=== PATIENT | female | born 1990 | race African-American/Black ===

== ENCOUNTER 2017-05-14 16:56 | Emergency (ER) | payer MEDICAID, OTHER ==
[~2017-05-14] VITALS: Ht 162.6 cm; Wt 58.0 kg
[2017-05-14 16:57] VITALS: BP 141/91; PULSE 81; RESP 16; TEMP 99; O2SAT 99
--- NOTE | 2017-05-14 17:33 | PD ---
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 Patient states that she has intermittent low abdominal pain and pelvic pain for the past 2 years. Patient denies any abdominal pain pelvic pain today. Patient states that the pains occasionally associated with eating . Patient states that she started having vaginal bleeding the week ago. Patient states that she has history of irregular menstruation period for the past several years. Patient states that she has 3 or 4 menses a year. Patient has not seen any seafood service team member for this. Patient states that she was seen at [facility] yesterday and had pelvic ultrasound done which show ovarian cyst. Patient was discharged. Patient states that she does not have any seafood service team member locally for follow-up. Patient denies any headache. Patient denies any chest pain or shortness of breath. Patient denies any dysuria or frequency. Patient denies any fever chills. Patient denies any back pain. PFSH Past Medical History Diminished Hearing: No ?: Not LMP: UNKNOWN : 2 Para: 1 Miscarriage: 1 Past Surgical History Section: Yes Gynecologic Surgery: Yes Valve Replacement: No Social History Alcohol Use: No Tobacco Use: No Substance Use: No Allergies-Medications (Allergen,Severity, Reaction): Coded Allergies: No Known Allergies (Verified , 04/01/15) Reported Meds & Prescriptions Reported Meds & Active Scripts Active No Active Prescriptions or Reported Medications Review of Systems General / Constitutional: No: Fever Eyes: No: Visual changes HENT: No: Headaches Cardiovascular: No: Chest Pain or Discomfort Respiratory: No: Shortness of Breath Gastrointestinal: Positive: Abdominal Pain Genitourinary: Positive: Pelvic Pain, Vaginal Bleeding, No: Dysuria Musculoskeletal: No: Pain Skin: No Rash Neurologic: No: Weakness Psychiatric: No: Depression Endocrine: No: Polydipsia Hematologic/Lymphatic: No: Easy Bruising Physical Exam Narrative GENERAL: Well-nourished, well-developed patient. SKIN: Focused skin assessment warm/dry. HEAD: Normocephalic. EYES: No scleral icterus. No injection or drainage. NECK: Supple, trachea midline. No JVD or lymphadenopathy. CARDIOVASCULAR: Regular rate and rhythm without murmurs, gallops, or rubs. RESPIRATORY: Breath sounds equal bilaterally. No accessory muscle use. GASTROINTESTINAL: Abdomen soft, non-tender, nondistended. MUSCULOSKELETAL: No cyanosis, or edema. BACK: Nontender without obvious deformity. No CVA tenderness. NEGATIVE ASSEMBLER exam: Done by my insurance account assistant. Patient has cervical motion tenderness. Mild tenderness on palpation of uterus. No adnexal masses or tenderness . Data Data Last Documented VS Vital Signs Date Time Temp Pulse Resp B/P Pulse Ox O2 Delivery O2 Flow Rate FiO2 05/14/17 16:57 99.0 81 16 141/91 99 Orders Beta Hcg (Quant/Titer) (05/14/17 17:18) Complete Blood Count With Diff (05/14/17 17:18) Comprehensive Metabolic Panel (05/14/17 17:18) Wet Prep Profile (05/14/17 17:18) Urinalysis - C+S If Indicated (05/14/17 17:18) Iv Access Insert/Monitor (05/14/17 17:18) Us Pelvis Comp W Doppler (05/14/17 17:18) Gc And Chlamydia Pcr (05/14/17 18:03) Labs Laboratory Tests Test 05/14/17 05/14/17 05/14/17 17:30 17:40 18:15 Urine Color YELLOW Urine Turbidity CLEAR Urine pH 6.0 Urine Specific [place] 1.033 Urine Protein TRACE mg/dL Urine Glucose (UA) NEG mg/dL Urine Ketones NEG mg/dL Urine Occult Blood NEG Urine Nitrite NEG Urine Bilirubin NEG Urine Urobilinogen LESS THAN 2.0 MG/DL Urine Leukocyte Esterase NEG Urine WBC 1 /hpf Urine Squamous Epithelial 1 /hpf Cells Urine Mucus FEW /lpf Microscopic Urinalysis Comment CULT NOT INDICATED Clue Cells (Wet Prep) NONE SEEN Vaginal Trichomonas (Wet Prep) NONE SEEN Vaginal Yeast (Wet Prep) NONE SEEN White Blood Count 4.4 TH/MM3 Red Blood Count 4.48 MIL/MM3 Hemoglobin 13.9 GM/DL Hematocrit 41.4 % Mean Corpuscular Volume 92.3 FL Mean Corpuscular Hemoglobin 31.1 PG Mean Corpuscular Hemoglobin 33.7 % Concent Red Cell Distribution Width 13.0 % Platelet Count 250 TH/MM3 Mean Platelet Volume 6.8 FL Neutrophils (%) (Auto) 48.9 % Lymphocytes (%) (Auto) 41.4 % Monocytes (%) (Auto) 7.2 % Eosinophils (%) (Auto) 1.7 % Basophils (%) (Auto) 0.8 % Neutrophils # (Auto) 2.2 TH/MM3 Lymphocytes # (Auto) 1.8 TH/MM3 Monocytes # (Auto) 0.3 TH/MM3 Eosinophils # (Auto) 0.1 TH/MM3 Basophils # (Auto) 0.0 TH/MM3 CBC Comment DIFF FINAL Differential Comment Sodium Level 139 MEQ/L Potassium Level 4.0 MEQ/L Chloride Level 104 MEQ/L Carbon Dioxide Level 28.9 MEQ/L Anion Gap 6 MEQ/L Blood Urea Nitrogen 11 MG/DL Creatinine 0.84 MG/DL Estimat Glomerular Filtration 98 ML/MIN Rate Random Glucose 72 MG/DL Calcium Level 8.8 MG/DL Total Bilirubin 0.3 MG/DL Aspartate Amino Transf 13 U/L (AST/SGOT) Alanine Aminotransferase 18 U/L (ALT/SGPT) Alkaline Phosphatase 79 U/L Total Protein 7.9 GM/DL Albumin 4.1 GM/DL Human Chorionic Gonadotropin, LESS THAN 1 Quant MIU/ML MDM Medical Decision Making Medical Screen Exam Complete: Yes Emergency Medical Condition: Yes Interpretation(s) Last Impressions Pelvis Ultrasound 05/14/17 0268 Signed Impressions: Service Date/Time: Sunday, May 14, 2017 17:53 - CONCLUSION: Negative pelvic ultrasound. Ten Flores MD 1859 PM. CBC within normal limit. CMP within normal limit. UA is negative. Wet prep negative. Beta HCG negative. Differential Diagnosis Differential diagnosis including dysmenorrhea, cervicitis, PID, threatened AB, ectopic , ovarian cyst, ovarian torsion. Narrative Course 26-year-old female with intermittent low abdominal pelvic pain and vaginal bleeding. Diagnosis Primary Impression: PELVIC AND PERINEAL PAIN Patient Instructions: General Instructions Additional Instructions: Ibuprofen as needed for pain. Follow with seafood service team member. Return if worse. Med/Other Pt SpecificInfo: Prescription(s) given Scripts Ibuprofen 600 Mg Okm210 Mg PO TID #60 TAB Prov:Baldo Morrissey MD 05/14/17 Disposition: 01 DISCHARGE HOME Condition: Stable Baldo Morrissey MD May 14, 2017 17:33
[2017-05-14 18:23] LABS: AUTOMATED NEUTROPHIL # 2.2 TH/MM3 (1.8-7.7); BASOPHIL % 0.8 % (0.0-2.0); EOSINOPHIL # 0.1 TH/MM3 (0-0.4); EOSINOPHIL % 1.7 % (0.0-4.0); HEMATOCRIT 41.4 % (35.0-46.0); HEMO FLAGS DIFF FINAL; LYMPH % 41.4 % (9.0-44.0); LYMPHOCYTE # 1.8 TH/MM3 (1.0-4.8); MEAN CELL VOLUME 92.3 FL (80.0-100.0); MEAN CORPUSCULAR HEMOGLOBIN 31.1 PG (27.0-34.0); MEAN CORPUSCULAR HGB CONC 33.7 % (32.0-36.0); MONO % 7.2 % (0.0-8.0); NEUT % 48.9 % (16.0-70.0); PLATELET COUNT 250 TH/MM3 (150-450); RED BLOOD COUNT 4.48 MIL/MM3 (4.00-5.30); WHITE BLOOD COUNT 4.4 TH/MM3 (4.0-11.0)
--- NOTE | 2017-05-14 18:31 | RADRPT ---
EXAM DATE/TIME: 05/14/2017 17:53 [facility] COMPARISON: No previous studies available for comparison. INDICATIONS : Pelvic pain. MEDICAL HISTORY : Pelvic pain. SURGICAL HISTORY : section. ENCOUNTER: Initial ACUITY: 1 month PAIN SCORE: 7/10 LOCATION: Bilateral pelvis MEASUREMENTS: UTERUS: 7.3 x 4.5 x 4.7 cm ENDOMETRIAL STRIPE: 4 mm RIGHT OVARY: 3.8 x 2.0 x 1.7 cm LEFT OVARY: 3.9 x 2.8 x 2.6 cm FINDINGS: UTERUS: The myometrium has homogeneous echotexture without mass. The endometrial stripe is homogeneous echot exture.. RIGHT OVARY: Ovary contains no mass or significant cystic lesion. Several small fluid persists. LEFT OVARY: Ovary contains no mass or significant cystic lesion. Several follicular cysts, the largest of which measures 1.5 cm. MISCELLANEOUS: No free fluid. CONCLUSION: Negative pelvic ultrasound. Ten Flores MD on May 14, 2017 at 18:26 Board Certified Radiologist. This report was verified electronically.
[2017-05-14 18:38] LABS: BLOOD, URINE NEG (NEG); COMMENT (UR) CULT NOT INDICATED; CULTURE IF INDICATED CULT NOT INDICATED; GLUCOSE,URINE NEG (NEG); KETONE, URINE NEG (NEG); MUCUS URINE FEW /lpf (OCC); NITRITE,URINE NEG (NEG); SQUAMOUS EPITHELIAL CELL URINE 1 /hpf (0-5); URINE COLOR YELLOW (YELLW/STRAW)
[2017-05-14 18:55] LABS: ALT (GPT) 18 U/L (10-53); ANION GAP 6 MEQ/L (5-15); AST (GOT) 13 U/L (15-37); BICARBONATE 28.9 MEQ/L (21.0-32.0); BLOOD UREA NITROGEN 11 MG/DL (7-18); CHLORIDE 104 MEQ/L (98-107); GLOMERULAR FILTRATION RATE 98 ML/MIN (>89); SODIUM (NA) 139 MEQ/L (136-145)
[2017-05-14 18:59] LABS: ALKALINE PHOSPHATASE 79 U/L (45-117); BETA HCG QUANT LESS THAN 1 MIU/ML (0-5); TOTAL BILIRUBIN ADULT 0.3 MG/DL (0.2-1.0)
[2017-05-14] MEDS ORDERED: IBUP-232 PO (19:06)
[2017-05-14 20:30] LABS: CHLAMYDIA PCR NOT DETECTED (NOT DETECT); NEISSERIA PCR NOT DETECTED (NOT DETECT)
== END 2017-05-14 19:27 | disposition home or self-care (01) ==
LOC: NEPD 16:56
DX: R10.2 Pelvic and perineal pain (principal)
CPT/HCPCS: 76856; 80053; 81001; 84702; 85025; 87210; 87491; 87591; 93975; 99284